=== PATIENT | female | born 1975 | race Caucasian/White ===

== ENCOUNTER → 2016-08-17 | Outpatient (CLI) | payer BC ==
--- OUTSIDE RECORDS SUMMARY | 2016-08-17 11:14 | XMS REPORT ---
Author Author Sincere Russo [facility] Address [address] [place], [place] [id number] Care Team Providers Care Utility Operator Yarn Name Role Phone Sincere Russo PCP Allergies and Adverse Reactions Name Reaction Notes NO KNOWN DRUG ALLERGIES Plan of Treatment Not available. Medications Active Name Start Date Estimated Completion Date SIG Comments Diflucan oral Prozac oral Augmentin 875-125 mg oral tablet 07/10/2015 07/17/2015 take 1 tablet by oral route every 12 hours for 7 days Name Start Date Expiration Date SIG Comments Elocon 0.1 % topical cream 09/04/2009 10/30/2009 apply a thin film to the affected skin areas by topical route once daily for 14 days Problem List Not available. Vital Signs Date Time BP-Sys(mm[Hg] BP-Cecelia(mm[Hg]) HR(bpm) RR(rpm) Temp WT HT HC BMI BSA BMI Percentile O2 Sat(%) 07/10/2015 7:42:00 PM 132 mmHg 76 mmHg 101 bpm 18 rpm 98.7 F 138.125 lbs 100 % 09/04/2009 9:43:00 AM 128 mmHg 79 mmHg 85 bpm 18 rpm 129 lbs Social History Not available. History of Procedures Date Ordered Description Order Status 09/04/2009 12:00 AM CYTOPATH C/V THIN LAYER Reviewed 09/04/2009 12:00 AM CULTURE OTHR SPECIMN AEROBIC Reviewed Results Summary Not available. History Of Immunizations Not available. History of Past Illness Name Date of Onset Comments Routine gynecological examination Sep 04 2009 9:52AM Vulvovaginitis Sep 04 2009 9:52AM Pap Smear, Post-Hysterectomy for Non-Malignancy Sep 04 2009 9:52AM Anemia prior to Hyst Acute maxillary sinusitis, recurrence not specified Jul 10 2015 7:44PM Payers Insurance Name Company Name Plan Name Plan Number Policy Number Policy Group Number Start Date [facility] [id number] N/A History of Encounters Visit Date Visit Type Provider 07/10/2015 Office visit Sincere Russo APRN 09/04/2009 Office visit Lucia Castellon MD
--- NOTE | 2016-08-18 09:21 | Diagnostic Imaging Report ---
EXAMINATION: Bilateral screening mammogram with a Computer Aided Detection (CAD) system. INDICATION: Screening. PERSONAL HISTORY: No current complaints stated on the questionnaire. COMPARISON: None. FINDINGS: The breasts are composed of heterogeneously dense parenchyma which may decrease mammographic sensitivity. There is no mass, architectural distortion, or suspicious cluster of calcifications. IMPRESSION: Dense breasts with no definite focal lesion. ACR BI-RADS Category 2: Benign findings. Result letter will be mailed to the patient. Note: At least 10% of breast cancer is not imaged by mammography. Dictated by: Dictated on workstation # [id number]
== END ==
LOC: RAD 11:12
PROVIDERS: ATTEND Obstetrics & Gynecology
DX: Z12.31 Encounter for screening mammogram for malignant neoplasm of breast (principal)